=== PATIENT | female | born 1980 | race Caucasian/White ===

== ENCOUNTER 2016-05-10 18:24 | Emergency (ER) | payer BC ==
[~2016-05-10] VITALS: Ht 175.3 cm; Wt 83.9 kg
--- NOTE | 2016-05-10 18:32 | NUR ---
PT REC'D TO ER VIA EMS . CP 6.5 PT WAS WATCHING TV CP HAPPENED FELT LIKE STBBING NOT DOWN THE ARM VSS IV LEFT AC 20G HEPLOCK EKG DONE AWAITING EVALUATION BY ER PROVIDER.
--- NOTE | 2016-05-10 18:37 | NUR ---
EKG DONE SR NOTIFIED MD . MOTHER AT BEDSIDE . LABS DRAWN SENT TO LAB
[2016-05-10] MEDS ORDERED: ASPIRIN 325 MG TABLET ONE (18:40)
[2016-05-10] MEDS: ASPIRIN 325 MG TABLET PO ONE ×2 (18:42→18:56)
[2016-05-10 18:44] LABS: BASOPHILS % (AUTO) 0.3 % (0.0-2.0); EOSINOPHILS # (AUTO) 0.1 /CMM (0.0-0.7); HEMOGLOBIN 13.1 g/dL (11.5-14.8); LYMPHOCYTES # (AUTO) 2.8 /CMM (0.8-4.8); MONOCYTES # (AUTO) 0.6 /CMM (0.1-1.30)
[2016-05-10 18:46] LABS: EOSINOPHILS % (AUTO) 1.3 % (0.0-6.0); HEMATOCRIT 40 % (33-45); LYMPHOCYTES % (AUTO) 35.4 % (20.0-44.0); MEAN CORPUSCULAR HEMOGLOBIN 26 PG (26.0-33.0); MEAN CORPUSCULAR HGB CONC 33 g/dl (31.0-36.0); MEAN CORPUSCULAR VOLUME 79 fL (82-100); MONOCYTES % (AUTO) 7.6 % (2.0-12.0); NEUTROPHILS # (AUTO) 4.5 /CMM (1.8-8.9); NEUTROPHILS % (AUTO) 55.4 % (43.0-81.0); PLATELET COUNT (AUTO) 290 /CMM (150-450); RDW COEFFICIENT OF VARIATION 12.8 (11.5-15.0); RED BLOOD CELL COUNT(AUTO) 5.02 MIL/uL (4.0-5.2)
[2016-05-10 18:51] LABS: CALCIUM, SERUM 8.8 mg/dL (8.5-10.1); CARBON DIOXIDE 26 mmol/L (21-32); CHLORIDE 105 mmol/L (98-107); CREATININE 0.7 mg/dL (0.6-1.3); GFR 95 mL/min (>60); GLUCOSE 133 mg/dL (74-106); POTASSIUM 3.7 mmol/L (3.5-5.1); SODIUM SERUM 139 mmol/L (136-145); UREA NITROGEN, BLOOD 6 mg/dL (7-18)
[2016-05-10 18:59] LABS: TROPONIN I < 0.017 ng/mL (0.00-0.056)
[2016-05-10] MEDS ORDERED: diphenhydrAMINE HCL 50 MG/ML VIAL ONE (19:00)
[2016-05-10] MEDS ORDERED: DEXAMETHASONE SOD PHOSPHATE 10 MG/ML VIAL ONE (19:00)
[2016-05-10] MEDS ORDERED: diphenhydrAMINE HCL 50 MG/ML VIAL IV ONE (19:00)
[2016-05-10] MEDS ORDERED: PROCHLORPERAZINE EDISYLATE 10 MG/2 ML VIAL ONE (19:00)
[2016-05-10] MEDS ORDERED: PROCHLORPERAZINE EDISYLATE 10 MG/2 ML VIAL IVP ONE (19:00)
[2016-05-10] MEDS ORDERED: DEXAMETHASONE 1 MG TABLET PO ONE (19:00)
[2016-05-10 19:11] LABS: THYROID STIMULATING HORMONE 1.367 uIU/mL (0.358-3.74)
--- NOTE | 2016-05-10 19:18 | NUR ---
pt given meds ivp per md order , signed waiver for hcg . chest xray done
[2016-05-10] MEDS ORDERED: DEXAMETHASONE SOD PHOSPHATE 10 MG/ML VIAL IV ONE (19:30)
[2016-05-10 20:17] VITALS: BP 127/81
--- NOTE | 2016-05-10 20:18 | NUR ---
Patient discharged to home in stable condition. Written and verbal after care instructions given. Patient verbalizes understanding of instruction.IV removed. Catheter intact and site benign. Pressure and 4x4 applied to site. No bleeding noted.
== END 2016-05-10 20:19 | disposition home or self-care (01) ==
LOC: ER 18:27
DX: R07.89 Other chest pain (principal); M94.0 Chondrocostal junction syndrome [Tietze]; I10 Essential (primary) hypertension
CPT/HCPCS: 36415; 71010-TC; 80048-TC; 84443-TC; 84484-TC; 85025-TC; 85378-TC; A4606; J0780; J1100; J1200; Z7610

== ENCOUNTER 2016-08-13 23:38 | Emergency (ER) | payer BC ==
[~2016-08-13] VITALS: Ht 175.3 cm; Wt 83.0 kg
--- NOTE | 2016-08-13 23:55 | NUR ---
PT BIB [facility] AND TAKEN TO ROOM #5 WITH A C/O CHEST PAIN X 1 WEEK. 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 PT REC'D 2 SPRAYS OF NITRO AND 162MG ASPIRIIN IN THE FIELD. PT IS AA&O X4. PT STATED THAT SHE HAD TO GO TO THE BATHROOM. PT AMBULATED FROM BED 5 TO THE BATHROOM WITH A SLOW STEADY GAIT. RESP EVEN AND UNLABORED. PT STATED THAT SHE WAS FEELING A LITTLE DIZZY FROM THE MEDICATION. PT HAS 20G IV IN LAC.
[2016-08-14 00:19] LABS: CALCIUM, SERUM 8.7 mg/dL (8.5-10.1); CARBON DIOXIDE 24 mmol/L (21-32); CHLORIDE 104 mmol/L (98-107); CREATININE 0.8 mg/dL (0.6-1.3); GLUCOSE 111 mg/dL (74-106); POTASSIUM 3.8 mmol/L (3.5-5.1); SODIUM SERUM 139 mmol/L (136-145); UREA NITROGEN, BLOOD 11 mg/dL (7-18)
[2016-08-14 00:23] LABS: ALANINE AMINOTRANSFERASE 28 U/L (12-78); ALBUMIN 3.7 g/dL (3.4-5.0); ALKALINE PHOSPHATASE 59 U/L (46-116); ASPARTATE AMINOTRANSFERASE 13 U/L (15-37); BILIRUBIN,DIRECT 0.1 mg/dL (0.0-0.2); BILIRUBIN,TOTAL 0.2 mg/dL (0.2-1.0); TOTAL PROTEIN, SERUM 7.5 g/dL (6.4-8.2)
[2016-08-14 00:26] LABS: TROPONIN I < 0.017 ng/mL (0.00-0.056)
[2016-08-14 00:30] LABS: D-DIMER 0.57 mg/L(FEU (0.17-0.50); PROTHROMBIN TIME 10.7 SECS (9.5-12.7)
[2016-08-14 00:32] LABS: HEMATOCRIT 38 % (33-45); HEMOGLOBIN 12.6 g/dL (11.5-14.8); MEAN CORPUSCULAR HEMOGLOBIN 26 PG (26.0-33.0); MEAN CORPUSCULAR HGB CONC 33 g/dl (31.0-36.0); MEAN CORPUSCULAR VOLUME 79 fL (82-100); RDW COEFFICIENT OF VARIATION 14.7 (11.5-15.0); RED BLOOD CELL COUNT(AUTO) 4.84 MIL/uL (4.0-5.2); WHITE BLOOD COUNT (AUTO) 11.1 K/uL (4.3-11.0)
[2016-08-14 00:33] LABS: BASOPHILS % (AUTO) 0.3 % (0.0-2.0); EOSINOPHILS % (AUTO) 0.9 % (0.0-6.0); LYMPHOCYTES % (AUTO) 27.7 % (20.0-44.0); NEUTROPHILS % (AUTO) 63.1 % (43.0-81.0); PLATELET COUNT (AUTO) 267 /CMM (150-450)
[2016-08-14] MEDS ORDERED: IV NS 0.9% 250 ML IV ONE (00:46)
[2016-08-14] MEDS ORDERED: IOHEXOL-350 100 ML VIAL IV ONE (00:46)
--- NOTE | 2016-08-14 00:48 | NUR ---
PT IS GOING TO CT VIA [facility]
--- NOTE | 2016-08-14 01:04 | NUR ---
PT RETURNED FROM CT.
--- NOTE | 2016-08-14 01:15 | NUR ---
Allyssa david in [facility] - 08/14/16 at 0116 by [facility] PT RETURNED FROM CT,
[2016-08-14] MEDS ORDERED: IV SET PRIMARY 1 EA INFUS.SET MC ONE (01:16)
[2016-08-14] MEDS ORDERED: IV NS 0.9% 1,000 ML ONE (01:17)
--- NOTE | 2016-08-14 01:23 | NUR ---
PT REC'D 1L NS VIA 20G LAC.
--- NOTE | 2016-08-14 01:58 | NUR ---
IV removed. Catheter intact and site benign. Pressure and 4x4 applied to site. No bleeding noted.Patient discharged to home in stable condition. Written and verbal after care instructions given. Patient verbalizes understanding of instruction. PT AMBULATED OUT WITH A STEADY GAIT. VSS. PT AND HER ARE TAKING UBER HOME. RESP EVEN AND UNLABORED. NO C/O CP AT THIS TIME.
[2016-08-14 02:08] VITALS: BP 98/60
[2016-08-14] MEDS ORDERED: IV NS 0.9% 1,000 ML BAG IV ONE (02:30)
== END 2016-08-14 02:03 | disposition home or self-care (01) ==
LOC: ER 23:42
DX: R07.9 Chest pain, unspecified (principal); I10 Essential (primary) hypertension; G89.29 Other chronic pain
CPT/HCPCS: 36415; 71010; 80048; 80076; 84484; 84703; 85025; 85378; 85730; 93005; 96360; 99285; A4606; J7030; J7050; Q9967; Z7610

== ENCOUNTER 2017-06-29 13:54 | Emergency (ER) | payer BC, MEDICAID ==
[~2017-06-29] VITALS: Ht 160 cm; Wt 66.2 kg
--- NOTE | 2017-06-29 15:09 | NUR ---
PT BROUGHT BY SPOUSE FOR C/C OF FACE PAIN PT ABLE TO WALK TALK AND GAVE URINE SAMPLE.
[2017-06-29] MEDS ORDERED: diphenhydrAMINE HCL 25 MG CAPSULE ONE (15:28)
[2017-06-29] MEDS ORDERED: diphenhydrAMINE HCL 25 MG CAPSULE PO ONE (15:30)
[2017-06-29] MEDS ORDERED: methylPREDNISolone SOD SUCC 125 MG/2ML VIAL ONE (16:22)
[2017-06-29] MEDS ORDERED: methylPREDNISolone ACETATE 40 MG/ML VIAL IM ONE (16:30)
[2017-06-29 16:32] VITALS: BP 117/72
== END 2017-06-29 16:36 | disposition home or self-care (01) ==
LOC: ER 13:55
DX: R07.9 Chest pain, unspecified (principal); R21 Rash and other nonspecific skin eruption; G89.29 Other chronic pain; I10 Essential (primary) hypertension; Z88.1 Allergy status to other antibiotic agents; Z88.8 Allergy status to other drugs, medicaments and biological substances
CPT/HCPCS: 36415; 84484-TC; A4606; J1030; J2930; Q0163; Z7610